=== PATIENT | female | born 1950 | race Caucasian/White ===

== ENCOUNTER 2023-07-23 08:04 | Outpatient (AMB) | payer MEDICARE, SELFPAY ==
--- NOTE | 2023-07-23 08:26 | AM.OFFWIN_ITS ---
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 Intake Note: pt is here for possible sinus infection, sore throat and difficulty swallowing Patient Tobacco Use Status: Never used Tobacco Allergies No Known Allergies Allergy (Unknown, Verified 07/23/23 08:26) Medication List - Last Reconciled 07/23/23 by ALENA Ann amoxicillin 875 mg PO BID 10 days atorvastatin 20 mg PO DAILY levothyroxine 88 mcg PO DAILY lorazepam 0.5 mg PO DAILY omeprazole 40 mg PO DAILY sertraline 100 mg PO DAILY Do you need a note to return to daycare/school/sports/work: No HPI HPI Comments History of Present Illness Details 72-year-old female presents today compla ining of a sore throat for 5 days. She relates her daughter is positive for strep and she has been spending time with her and baby-sits the grandchild. States that she also has ear tenderness headache had a fever yesterday of 100.1. This includes myalgias. Denies cough or shortness of breath denies chest pain PFSH Social History Patient Tobacco Use Status: Never used Tobacco Review of Systems Const All systems reviewed & are unremarkable except as noted in HPI and below Eyes Reports no additional complaints ENT Reports Normal hearing present, Reports otalgia, Reports nasal congestion, Reports sinus pain and Reports sore throat Card Reports no additional complaints Resp Reports no additional complaints GI Reports no additional complaints Neuro Reports Normal hearing present Physical Exam Vital Signs: Last Vital Signs Temp 99.8 F 07/23/23 08:27 Pulse 105 H 07/23/23 08:27 BP 122/78 07/23/23 08:27 Pulse Ox 94 07/23/23 08:27 Oxygen Delivery Method Room Air 07/23/23 08:27 BMI result Body Mass Index 32.1 HEENT Head: Yes normal to inspection and Yes normocephalic Ears: hearing grossly normal bilaterally, external ears normal, TM's normal bilaterally and EAC's normal General nose exam: Normal external nose present Face and sinus: Yes normal facial exam Throat: Yes posterior oropharynx abnormal (Erythema) Resp Effort & Inspection: normal respiratory effort Auscultation: clear to auscultation bilaterally Cardio Rate: tachycardic Rhythm: regular rhythm Neuro Cranial nerves: Yes Normal hearing present Results Reviewed Results Reviewed: Rapid strep done in the office today was negative however with the exposure from her daughter I will treat her for strep this was discussed with the patient Assessment & Plan Assessment & Plan (1) Exudative pharyngitis: Code(s): J02.9 - Acute pharyngitis, unspecified Plan: The patient will is put on antibiotics and the viral culture has been ordered. 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
[2023-07-23 08:27] VITALS: BP 122/78; PULSE 105; TEMP 37.7; O2SAT 94; BMI 32.1
== END 2023-07-23 09:30 | disposition home or self-care (01) ==
PROVIDERS: Visit Provider Physician Assistant Medical
DX: J02.9 Acute pharyngitis, unspecified (principal)
CPT/HCPCS: 87880; 99213

== ENCOUNTER 2023-07-23 10:18 | Outpatient (REF) | payer MEDICARE, SELFPAY ==
[2023-07-23 11:27] LABS: Influenza A PCR NEGATIVE (Negative); Influenza B PCR NEGATIVE (Negative); Resp Syncy Virus RNA Qual PCR NEGATIVE (Negative); SARS COV2 PCR INHOUSE NEGATIVE (Negative)
== END 2023-07-23 10:19 | disposition home or self-care (01) ==
LOC: HO.LNP 10:18
PROVIDERS: Visit Provider Physician Assistant Medical
DX: U07.1 COVID-19 (principal)
CPT/HCPCS: 0241U